=== PATIENT | male | born 1970 | race Caucasian/White ===

== ENCOUNTER 2019-09-30 00:57 | Emergency (ER) | payer SELFPAY ==
[~2019-09-30] VITALS: Ht 182.9 cm; Wt 104.5 kg
[2019-09-30 01:06] VITALS: TEMP 97.1
[2019-09-30] MEDS ORDERED: CEPHALEXIN500 M1 PO (01:24)
[2019-09-30 01:43] VITALS: BP 150/105; PULSE 87
== END 2019-09-30 01:45 | disposition home or self-care (01) ==
LOC: COL.ER 00:57
DX: L73.9 Follicular disorder, unspecified (principal); F17.210 Nicotine dependence, cigarettes, uncomplicated